=== PATIENT | female | born 1955 | race Caucasian/White ===

== ENCOUNTER 2016-12-07 11:48 | Emergency (ER) | payer BC ==
[~2016-12-07] VITALS: Ht 157.5 cm; Wt 81.6 kg
[~2016-12-07 11:48] MED LIST: ADVAIR 10028 PUFF/IN IN; AMBIEN 10MG TAB10 MG PO; ATIVAN1 MG PO; BISOPROLOL 5MG T5 MG PO; CALCIUM 500 W/V1 TAB PO; EVAMIST1.53 MG/Ac TD; FISH OIL1000 MG PO; FLONASE 50 MCG16 GM; LASIX20 MG PO; LEVOCETIRIZINE D5 MG PO; OSTEO BI FLEX PO; PANTOPRAZOLE SO40 M1 PO; PRAVASTATIN SOD80 MG PO; TRAZODONE 50MG50 MG PO; TYLENOL ES500 M1 PO; ZYRTEC ALLERGY10 MG PO
--- NOTE | 2016-12-07 13:02 | [facility]gent Treatment Center Report ---
History of Present Issue Date/Time Seen by Provider 12/07/16 1258 Visit Reason Pt arrived:Walked Presenting Problem:PT STATES SINUS DRAINAGE, PRODUCTIVE COUGH WITH WHITE SPUTUM, SORE THROAT FOR TWO DAYS Location if Accident: Onset of symptoms date/time:/ or onset unknown for:MEDICAL HX UNKNOWN Have you (or family members/close friends) recently traveled outside the [place]? N If Yes, where/when: Have you had exposure to infectious disease within the past month? TB? Other? Specify: Source patient Exam Limitations no limitations Comment 69-year-old female presents for cough, clear nasal drainage, nasal pressure and a sore throat for a few days has been on ALLERGY medicine. Patient states she's had this twice a year and is requesting steroid injection. ALLERGIES Coded Allergies: No Known Allergies (12/07/16) Home Medications Active Scripts Pantoprazole Sodium 40 MG PO QHS #30 Ref 5 Prov: 11/09/12 Reported Medications Acetaminophen (Tylenol Extra-Strength) 500 MG PO BID Pravastatin Sodium (Pravastatin 80MG) 80 MG PO QHS TRAZODONE HCL (Trazodone HCl) 50 MG PO QHS LEVOCETIRIZINE DIHYDROCHLORIDE (Levocetirizine Dihydrochloride) 5 MG PO DAILY Calcium Carbonate-Vitamin D (Calcium 500 W/Vitamin D 500 Mg-125 Iu) 1 TAB PO BID Lorazepam (Ativan 1MG) 1 MG PO NIGHT ONLY [place]-3 FATTY ACIDS/FISH OIL (Fish Oil 1,000 MG Capsule) 1,000 MG PO DAILY Furosemide (Lasix) 20 MG PO DAILY BISOPROLOL FUMARATE (Bisoprolol 5MG) 2.5 MG PO DAILY Cetirizine Hcl (Zyrtec) 10 MG PO BID SALMETEROL 50/FLUTICASONE 100 (Advair 100-50 Diskus) 1 PUFFS IN BID Fluticasone Propionate (Flonase 50 Mcg Nasal [place]) 1 SPRAY NA BID History Medical History General CAD? No Angina: Yes [place]: No Hypertension? No Hyperlipidemia? Yes CHF? No DVT? No PE? No COPD? No Asthma? No Anemia? No GERD? No Gastric ulcers? No GI Bleed? No Hernia? No Thyroid Problems? No Hypothyroidism? No CVA? No Seizures? No Diabetes? No Renal Insuffiency? No UTI? No Stones? No BPH? No GB Disease: Yes Nephritic Syndrome? No Asplenia? No Hepatitis? No Sickle Cell Disease? No Arthritis? No Migraines? No Cataracts? No Glaucoma? No MRSA? No HIV? No TB? No Anxiety? No Depression? No Cancer? No Immunization HX DT/Tetanus > 10 YRS Flu 2012-13FSN Pneumonia Received In Past Surgical Hx Previous Surgery?Y LAP TUBAL Cholecystectomy LUMPECTOMY TONSILS D & C ASPIRATED 3 CYSTS LT DEX HYSTERECTOMY BLADDER TACK HERNIA REPAIR Family History Family HX Diabetes Yes CAD No Hypertension Yes Hyperlipidemia Yes Cancer No TB No Social History Smoking Hx Smoker: Never Smoker Tobacco: No Alcohol Alcohol: No Review of Systems All Other Systems Reviewed and Negative ENT nose discharge, nose congestion. denies: no symptoms reported. Respiratory see HPI, cough Physical Exam Vital Signs Vital Signs Date Time Temp Pulse Resp B/P Pulse O2 O2 Flow FiO2 Ox Delivery Rate 12/07 1229 99.3 66 20 121/71 96 - WBC >12,000 or <4,000 or 10% bands? 2 or more SIRS Criteria Met? B/P:121/71 MAP:87 Creatinine >2.0? UA output<0.5ml/kg/hr for 2 hrs? Platelet count >100,000? Lactate >2.0mmol/1? INR >1.2 or PTT > than 60 sec? Evidence of Organ Dysfunction? Provider documented clinical suspician of infection? Sepsis Criteria Count: 1 Sepsis Risk: General Appearance normal appearance, no apparent distress Eye Exam - bilateral eye normal exam, bilateral eye PERRL, bilateral eye EOMI Ear, Nose, Throat hearing grossly normal, sinus pain/drainage, nasal congestion, pharyngeal erythema Neck normal inspection Respiratory Status Yes: trachea midline, chest symmetrical, non tender chest. No: respiratory distress. Lung Sounds bilateral: normal breath sounds, lungs clear. Cardiovascular normal exam, regular rate/rhythm Neurologic alert, normal exam, oriented x 3 Medical Decision Making LABS/Meds/Orders Pt receiving controlled substance in ED? No Results/Orders Current Medication Orders Sig/Johann Start time Last Medication Dose Route Stop Time Status Admin Dexamethasone Sodium 4 MG ONCE ONE 12/07 1300 AC Phosphate IM 12/07 1301 Departure Departure Time of Disposition 1300 Disposition DC Home or Self Care(routine) Clinical Impression Primary Impression: Allergic rhinitis Qualifiers: Chronicity: acute Allergic rhinitis trigger: unspecified Allergic rhinitis seasonality: unspecified seasonality Qualified Code: J30.9 - Allergic rhinitis, unspecified Condition STABLE Referrals Ashutosh PEREZ,Avel Burdick (Family) Patient Instructions Allergic Rhinitis, DI for Allergic Rhinitis Additional Instructions Tylenol Motrin as needed for pain or fever Follow-up primary care this week Return to be seen in the ER symptoms worsen or do not improve Discharge Counseling Counseled pt/family regarding diagnosis, home care, follow up needs
[2016-12-07 13:17] VITALS: BP 121/71
== END 2016-12-07 13:23 | disposition home or self-care (01) ==
LOC: UTC 11:48
DX: J30.9 Allergic rhinitis, unspecified (principal); E78.5 Hyperlipidemia, unspecified; Z79.51 Long term (current) use of inhaled steroids; Z79.899 Other long term (current) drug therapy